=== PATIENT | female | born 2005 | race African-American/Black ===

== ENCOUNTER 2025-03-25 21:05 | Emergency (ER) | payer OTHER, SELFPAY ==
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
[2025-03-25 21:16] VITALS: BP 135/89; PULSE 97; RESP 14; TEMP 36.6; O2SAT 100
--- NOTE | 2025-03-25 22:08 | ECG_ITS ---
Test Date: 2025-03-25 23:10:13 Measurements Intervals [place] Rate: 93 P: 46 VT: 145 QRS: 49 QRSD: 89 T: 14 QT: 369 QTc: 461 Interpretive Statements SINUS RHYTHM NORMAL ELECTROCARDIOGRAM No previous ECG available for comparison Electronically Signed On 03-26-2025 07:34:59 DISPLAY CARD WRITER by Antonio Hankins M.D.
[2025-03-25 22:09] VITALS: BP 147/87; PULSE 95; RESP 26; O2SAT 100
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
[2025-03-25] MEDS: SODIUM CHLORIDE 0.9% IV 1,000 ML 999 ML IV CONT (22:44)
--- OUTSIDE RECORDS SUMMARY | 2025-03-25 23:06 | XMS_ITS | Clinical Summary ---
Author Organization [facility] Address [address] [place] [address] Care Team Providers Care Assembler Show Motor Name Role Phone Crescencio Vazquez MD Primary Care Provider [phone] Allergies No known active allergies Medications etonogestreL-eth inyl estradioL (EluRyng) 0.12-0.015 mg/24 hr vaginal ring Insert 1 each into the vagina every 28 (twenty-eig ht) days Active Active Problems No known active problems Immunizations Immunization Administration Dates Next Due DTaP 04/14/2005, 5,02/19/2004,12/24 DTaP / IPV 12/22/2008 HPV, Quadrivalent 11/17/2014 HPV9 03/18/2016,10/16/2015 Hep A, Pediatric 11/17/2014,11/15/2006, 6 Hep B, Adolescent or Pediatric 5,02/19/2004,2003,10/09 HiB 04/14/2005, 5,02/19/2004,12/24 IPV 05/06/2004,02/19/2004,2003 Influenza, Quadrivalent, Spl it, Preservative Free, Intramuscular 03/18/2016 Influenza, Split 05/06/2004 MMR 12/22/2008,10/28/2004 Meningococcal B, OMV (Bexsero) 09/01/2020,2019 Meningococcal Conjugate (Menveo) 11/17/2014 Meningococcal MCV4P (Menactra) 03/03/2020 Pneumococcal Conjugate 7-Valent 04/14/20,05/06/2004,02/19/2004,12/24 Tdap 11/28/2024,11/17/2014 Varicella 12/22/2008,10/28/2004 Social History Tobacco Use Types Packs/Day Years Used Date Smoking Tobacco: Never Smokeless Tobacco: Never Tobacco Cessation:Counseling Given: Not Answered AUDIT-C Answer Date Recorded Q1: How often do you have a drink containing alcohol? Never 11/28/2024 Q2: How many drinks containi ng alcohol do you have on a typical day when you are drinking? Patient does not drink Q3: How often do you have si x or more drinks on one occasion? Never 11/28/2024 PHQ-2 Answer Date Recorded PHQ-2 Total Score (If total score is 3 or more points, staff should administer the PHQ-9) 0 11/28/2024 Comments No Sex and Gender Information Value Date Recorded Sex Assigned at Not on file Legal Sex Female 1:06 PM LETTUCE TRIMMER Gender Identity Not on file Sexual Orientation Not on file Last Filed Vital Signs Vital Sign Reading Time Taken Comments Blood Pressure 118/82 11/28/2024 2:23 PM CDT Pulse 77 11/28/2024 2:23 PM CDT Temperature 37 C (98.6 F) 05/21/2022 7:24 PM LETTUCE TRIMMER Respiratory Rate 16 11/28/2024 2:23 PM CDT Oxygen Saturation 98% 11/28/2024 2:23 PM CDT Inhaled Oxygen Concentration - - Weight 99.5 kg (219 lb 6.4 oz) 11/28/2024 2:23 P M CDT Height 162.6 cm (5' 4.02) 11/28/2024 2:23 PM CD T Body Mass Index 37.64 11/28/2024 2:23 PM CDT Plan of Treatment Health Maintenance Due Date Last Done Comments Cervical Cancer Screening 2003 Covid-19 Vaccine (2 6 season) 2024 12/09/2021 Influenza Vaccine (#1) 2024 03/18/2016, 2004 Depression Screening 11/28/2025 11/28/2024 Regular Well Visit/Exam 18-64 11/28/2025 11/28/2024 DTaP/Tdap/Td Vaccine (8 - Td or Tdap) 11/28/2034 11/28/2024, 11/17/2014, 12/22/2008, Additional history exists Hepatitis B Screening Completed 05/06/2004 , 02/19/2004, 2003, Additional history exists Pneumococcal vaccine <65 Completed 005, 05/06/2004, 02/19/2004, Additional history exists Varicella Vaccines Completed 12/22/2008, 10/28/2004 HPV Vaccines Completed 03/18/2016, 09/29, 11/17/2014 Meningococcal Vaccine Completed 03/03/2020, 015 Meningococcal B Vaccine Completed 09/01/2020, 03/03 Hepatitis C Screening Completed 11/28/2024 Procedures Procedure Name Priority Date/Time Associated Diagnosis Comments HEPATITIS C ANTIBODY Routine 11/28/2024 3:07 PM CDT Routine screening for STI (sexually transmitted infection) from Last 3 Months or Most Recently Relevant to Health Maintenance Results * Hepatitis C antibody Blood (11/28/2024 3:07 PM CDT) Hep C Ab Nonreactive Nonreactive Comment: Interpretive Data Nonreactive: Antibodies to HCV not detected. Does NOT exclude the possibility of recent exposure to HCV. Equivocal: Equivocal for HCV antibodies. Supplemental molecular testing will be automatically performed to determine infection status in accordance with current CDC screening recommendations. Reactive: Positive for HCV antibodies. This may represent current or past HCV infection. Supplemental molecular testing will be automatically performed to determine current infection status in accordance with current CDC screening recommendations. Interpretive data was last revised on 2019. Testing performed by: [facility], [address] [place] [address], [place]., [address] Blood 11/28/2024 3:07 PM CDT 11/28/2024 7:22 PM CDT us Crescencio Vazquez MD LAB MICROBIOLOGY - GENERA L ORDERABLES Final Result DANNY MEJIA CARTHAGE) [address] [facility] [place] [address] from Last 3 Months or Most Recently Relevant to Health Maintenance Insurance [facility] Care Teams Assembler Show Motor Relationship Specialty Start Date End Date Crescencio Vazquez MD [address] [place] [address] PCP - General Family Medicine 02/15/23
--- OUTSIDE RECORDS SUMMARY | 2025-03-25 23:06 | XMS_ITS | Clinical Summary ---
Author Organization [facility] Address [address] [place] [address] Phone Care Team Providers Care Awning Frame Maker Name Role Phone Provider, None Primary Care Provider Unavailabl e Allergies No known active allergies Medications EluRyng 0.12-0.015 MG/24HR RING INSERT VAGINALLY FOR 3 WEEKS THEN REMOVE FOR 1 WEEK Active ondansetron (ZOFRAN-ODT) 4 MG TABLET DISPERSIBLE Take 1 Tablet by mouth every 8 hours as needed for Nausea - 1st line. 15 Tablet 4 Active prochlorperazine (COMPAZINE) 5 MG Tablet Take 1-2 Tablets by mouth every 6 hours as needed for Nausea - 1st line. 10 Tablet 4 Active Social History Tobacco Use Types Packs/Day Years Used Date Smoking Tobacco: Never Smokeless Tobacco: Never Tobacco Cessation:Counseling Given: Not Answered Alcohol Use Standard Drinks/Week Comments Never 0 (1 standard drink = 0.6 oz pur e alcohol) Comments Unknown Sex and Gender Information Value Date Recorded Sex Assigned at Not on file Legal Sex Female 3:11 PM CDT Gender Identity Not on file Sexual Orientation Not on file Last Filed Vital Signs Vital Sign Reading Time Taken Comments Blood Pressure 107/63 12/14/2023 3:39 AM CDT Pulse 87 12/14/2023 3:39 AM CDT Temperature 36.8 C (98.3 F) 12/14/2023 12:52 AM CDT Respiratory Rate 18 12/14/2023 3:39 AM CDT Oxygen Saturation 99% 12/14/2023 3:39 AM CDT Inhaled Oxygen Concentration - - Weight 104.3 kg (230 lb) 12/14/2023 12:52 AM CDT Height 162.6 cm (5' 4) 12/14/2023 12:52 AM CDT Body Mass Index 39.48 12/14/2023 12:52 AM CDT Plan of Treatment Health Maintenance Due Date Last Done Comments Hepatitis C Virus (HCV) Screening 2003 Pap Smear 10/09/2024 Influenza Immunization (#1) 2024 03/18/2016, 0 05/06/2004 SARS-COV-2 Immunization (2 - season) 2024 12/09/2021 Respiratory Syncytial Virus (RSV) Immunization (Adult) (1 - 1-dose 75+ series) 10/09/2078 Hepatitis B Immunization Completed 005, 02/19/2004, 2003, Additional history exists Pneumococcal Immunization Combined Aged Out 04/14/2005, 05/06/2004, 02/19/2004, Additional history exists No longer eligible based on patient's age to complete this topic Measles Mumps Rubella (MMR) Immunization Discontinued 12/22/2008, 10/28/2004 Polio (IPV) Immunization Discontinued 009, 12/22/2008, 05/06/2004, Additional history exists Varicella Immunization Completed 12/22/2008, 2004 DTaP/Tdap/Td Immunization Discontinued 2014, 12/22/2008, 12/22/2008, Additional history exists Hepatitis A Immunization Discontinued 015, 11/15/2006, 11/23/2005 TdaP Immunization Completed 11/17/2014 Human Papillomavirus (HPV) Immunization Completed 03/18/2016, 10/16/2015, 11/17/2014 Meningococcal Immunization (ACWY) Completed 03/03/2020, 11/17/2014 Meningococcal B Immunization Completed 09/01/2020, 03/03/2020 Rotavirus Immunization Aged Out No lo nger eligible based on patient's age [place] [address] [place] [id number] MEDICAID [employer] [facility] Care Teams Awning Frame Maker Relationship Specialty Start Date End Date Provider, None [place] PCP - General 04/07/23
--- OUTSIDE RECORDS SUMMARY | 2025-03-25 23:06 | XMS_ITS | Data Portability ---
Author Organization KEERTHI DESTINEEKrysten Mcallister Address [address] [place] [address] Assessment No assessment recorded. Plan of Treatment Reminders Order Date Submit Date Provider Last Modified By Organization Details Last Modified Time Details Appointments None recorded. Lab Mycobacter ium tuberculos is stimulated gamma interferon , qual, blood 2023 024 hung [facility], [address] [place], [place] [address]delon [address], [address], [place], [address], 4 09:40:32 urinalysis complete, reflex culture 2022 023 ELSIE [facility], [facility] br[facility]formerly [facility] [address], [address], [place], [address], 3 17:09:48 urinalysis complete, reflex culture 2022 023 MANH[place]AN [facility], [facility] brad[facility]formerly [facility] Rik, [facility] [address], [place], [address], 3 17:09:47 BMP, serum or plasma 2022 023 ELSIE [facility], [facility] brad[facility]formerly [facility] [address], [address], [place], [address], 3 17:09:46 TSH, serum or plasma 2022 023 ELSIE [facility], [facility] C[facility]ar [address], [address], [place], [address], 3 12:27:34 HbA1c (hemoglobi n A1c), blood 2022 023 ELSIE [facility], [address], [address], [place], [address], 3 17:09:49 lipid panel, serum 2019 020 ELSIE [facility], [address], [address], [place], [address], 0 11:12:42 HbA1c (hemoglobi n A1c), blood 2019 020 ELSIE [facility], [address], [address], [place], [address], 0 11:12:43 CMP, serum or plasma 2019 020 ELSIE [facility], [address], [address], [place], [address], 0 11:12:41 vitamin D, 25-hydroxy , total, serum 2019 020 ELSIE [facility], Lisa [address]on [address], [address], [place], [address], 0 11:12:44 TSH + free T4, serum 2019 020 ELSIE [facility], [address], [address], [place], [address], 0 11:12:40 HIV 1+2 AB + HIV 1 p24 Ag, qualitativ e immunoassa y, serum 2019 020 ELSIE [facility], [address], [address], [place], [address], 0 11:12:45 unlisted lab - chlamydiA/ GC amplificat ion-[id number] -U 2019 020 ELSIE [facility], [address], [address], [place], [address], 0 07:10:53 rapid strep group A, throat 2018 019 [email or web address] In-Office Order, Internal Use Only DO Not Attach Compendium DO Not Attach Compendium, Do Not Delete/merge, [id number] 9 17:22:30 Referral None recorded. Procedures None recorded. Surgeries None recorded. Imaging None recorded. Medication Orders ibuprofen 400 mg tablet 2022 023 [email or web address] Not available 4 09:34:35 Patient TargetsNo targets recorded. Patient Instructions Encounter Date Encounter Id Patient Instructions Last Modified By Organization Details Last Modified Time 03/03/2020 [id number] Learning About H ow to Make Healthy Changes in Your Child's Diet Not available 03/03/2020 16:46:07 Considering More Physical Activity for Your Child Not available 03/03/2020 16:46:07 Learning About H ow to Make Healthy Changes in Your Child's Diet Not available 03/03/2020 14:24:40 11/08/2022 [id number] A healthy lifestyle: care instructions [email or web address] Not available 11/08/2022 12:27:22 walking for exercise: care instructions Not available 11/08/2022 12:27:22 On the date of this encounter, I saw and examined the patient, personally verifying the artis and critical findings in the resident s note. I reviewed and agree with the resident/fellow s findings and plan. ~MD Maxime Good start for this patient. Learning Issues to consider: management and indications for breast reduction; ddx for low back pain in this patient [email or web address] Not available 11/08/2022 14:17:57 12/07/2023 [id number] A healthy lifestyle: care instructions [email or web address] Not available 12/07/2023 10:02:17 Attending Physician Attestation I did not personally see or examine the patient with the resident. I was physically present to provide indirect supervision through entire encounter. I have reviewed the documentation and agree with the history, physical findings, work-up, and medical decision making as recorded. Cristobal Boogie MD [email or web address] Not available 12/07/2023 09:56:33 Reason for Referral None Reported. Results Created Date Observation Date Name Description Value Unit Range Abnormal Flag Note LastModifiedBy Organization Detail LastModifiedTime 04/25/2004/25/2019 rapid strep group A, throa t Strep negati ve Not Available In-Office Order Internal Use Only DO Not Attach Compendium DO Not Attach Compendium, Do Not Delete/merge, [id number] 04/25/2019 17:22:23 03/03/2003/05/2020 chlam ydiA/ GC ampli ficat ion-1 [id number] -U chlamydia trachomatis, YOEL Negati ve negati ve Not Available [facility] ([facility]) [address] [place], [address], 03/05/2020 07:10:53 03/03/2003/05/2020 chlam ydiA/ GC ampli ficat ion-1 [id number] -U neisseria gonorrhoeae, YOEL Negati ve negati ve Not Available [facility] ([facility]) [address] [place], [address], 03/05/2020 07:10:53 03/18/2003/19/2020 TSH + free T4, serum TSH 2.730 uIU/m L 0.450- 4.500 Not Available [facility] ([facility]) [address] [place], [address], 03/19/2020 11:12:39 03/18/2003/19/2020 TSH + free T4, serum T4,free(dire ct) 1.02 NG/dL 0.93-1 .60 Not Available [facility] ([facility]) [address] [place], [address], 03/19/2020 11:12:39 03/18/2003/19/2020 CMP, serum or plasm a glucose 86 mg/dL 65-99 Not Available [facility] ([facility]) [address] [place], [address], 03/19/2020 11:12:40 03/18/2003/19/2020 CMP, serum or plasm a BUN 12 mg/dL 5-18 Not Available [facility] ([facility]) [address] [place], [address], 03/19/2020 11:12:40 03/18/2003/19/2020 CMP, serum or plasm a creatinine 0.89 mg/dL 0.57-1 .00 Not Available [facility] ([facility]) [address] [place], [address], 03/19/2020 11:12:40 03/18/2003/19/2020 CMP, serum or plasm a BUN/creatini ne ratio 13 10-22 Not Available [facility] ([facility]) [address] [place], [address], 03/19/2020 11:12:40 03/18/2003/19/2020 CMP, serum or plasm a sodium 141 mmol/ L 134-14 4 Not Available [facility] ([facility]) [address] [place], [address], 03/19/2020 11:12:40 03/18/2003/19/2020 CMP, serum or plasm a potassium 3.9 mmol/ L 3.5-5. 2 Not Available [facility] ([facility]) [address] [place], [address], 03/19/2020 11:12:40 03/18/2003/19/2020 CMP, serum or plasm a chloride 104 mmol/ L 96-106 Not Available [facility] ([facility]) [address] [place], [address], 03/19/2020 11:12:40 03/18/20 20 03/19/2020 CMP, serum or plasm a carbon dioxide, total 22 mmol/ L 20- Not Available [facility] ([facility]) [address] [place], [address], 03/19/2020 11:12:40 03/18/20 20 03/19/2020 CMP, serum or plasm a calcium 9.8 mg/dL 8.9-10 .4 Not Available [facility] ([facility]) [address] [place], [address], 03/19/2020 11:12:40 03/18/2003/19/2020 CMP, serum or plasm a protein, total 7.8 g/dL 6.0-8. 5 Not Available [facility] ([facility]) [address] [place], [address], 03/19/2020 11:12:40 03/18/2003/19/2020 CMP, serum or plasm a albumin 4.4 g/dL 3.9-5. 0 Not Available [facility] ([facility]) [address] [place], [address], 03/19/2020 11:12:40 03/18/20 20 03/19/2020 CMP, serum or plasm a globulin, total 3.4 g/dL 1.5-4. 5 Not Available [facility] ([facility]) [address] [place], [address], 03/19/2020 11:12:40 03/18/2003/19/2020 CMP, serum or plasm a A/G ratio 1.3 1.2-2. 2 Not Available [facility] ([facility]) [address] [place], [address], 03/19/2020 11:12:40 03/18/20 20 03/19/2020 CMP, serum or plasm a bilirubin, total 0.3 mg/dL 0.0-1. 2 Not Available [facility] ([facility]) [address] [facility], [place], [address], 03/19/2020 11:12:40 03/18/2003/19/2020 CMP, serum or plasm a alkaline phosphatase 95 IU/L 49-108 Not Available [facility] ([facility]) [address] [facility], [place], [address], 03/19/2020 11:12:40 03/18/2003/19/2020 CMP, serum or plasm a AST (SGOT) 18 IU/L 0-40 Not Available [facility] ([facility]) [address] [facility], [place], [address], 03/19/2020 11:12:40 03/18/2003/19/2020 CMP, serum or plasm a ALT (SGPT) 13 IU/L 0-24 Not Available [facility] ([facility]) [address] [facility], [place], [address], 03/19/2020 11:12:40 03/18/2003/19/2020 lipid panel , serum cholesterol, total 192 mg/dL 100-16 9 above high normal Not Available [facility] ([facility]) [address] [facility], [place], [address], 03/19/2020 11:12:42 03/18/2003/19/2020 lipid panel , serum triglyceride s 67 mg/dL 0-89 Not Available [facility] ([facility]) [address] [facility], [place], [address], 03/19/2020 11:12:42 03/18/20 20 03/19/2020 lipid panel , serum HDL cholesterol 64 mg/dL >39 Not Available [facility] ([facility]) [address] [facility], [place], [address], 03/19/2020 11:12:42 03/18/20 20 03/19/2020 lipid panel , serum VLDL cholesterol brayden 12 mg/dL 5-40 Not Available [facility] ([facility]) [address] [facility], [place], [address], 03/19/2020 11:12:42 03/18/20 20 03/19/2020 lipid panel , serum LDL chol calc ([facility]) 116 mg/dL 0-109 above high normal Not Available [facility] (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) [address] [facility], [place], [address], 03/19/2020 11:12:42 03/18/2003/19/2020 lipid panel , serum LDL/HDL ratio 1.8 ratio 0.0-3. 2 LDL/H DL Ratio Men Women 1/2 Avg.R isk 1.0 1.5 Avg.R isk 3.6 3.2 2X Avg.R isk 6.2 5.0 3X Avg.R isk 8.0 6.1 Not Available [facility] ([facility]) [address] [facility], [place], [address], 03/19/2020 11:12:42 03/18/20 20 03/19/2020 HbA1c (hemo globi n A1c), blood hemoglobin A1C 5.4 % 4.8-5. 6 Predi abete s: 5.7 - 6.4 Diabe ry: >6.4 Glyce gris contr ol for adult s with diabe ry: <7.0 Not Available [facility] ([facility]) [address] [facility], [place], [address], 03/19/2020 11:12:43 03/18/2003/19/2020 vitam in D, 25-hy droxy , total , serum vitamin D, 25-hydroxy 15.0 NG/mL 30.0-1 00.0 below low normal Vitam in D defic iency has been defin ed by the Insti tute of Medic ine and an Endoc rine Socie ty pract ice guide line as a level of serum 25-OH vitam in D less than 20 ng/mL (1,2) . The Endoc rine Socie ty went on to furth er defin e vitam in D insuf ficie ncy as a level betwe en 21 and 29 ng/mL (2). 1. IOM (Inst itute of Medic ine). 2010. Dieta ry refer ence lesvia es for calci um and D. Maude kaiser [place]: [facility] . 2. Javier ribeiro MF, Cassi hernandez NC, Parminder off-F errar i ARZATE, et al. Evalu ation , treat ment, and preve ntion of vitam in D defic iency : an Endoc rine Socie ty clini brayden pract ice guide line. JCEM. 2010; 96(7) :1911 -30. Not Available [facility] ([facility]) [address] [place], [address], 03/19/2020 11:12:44 03/18/20 20 03/19/2020 HIV 1+2 AB + HIV 1 p24 Ag, quali tativ e immun oassa y, serum HIV screen 4TH generation wrfx Non Reacti ve non reacti ve Not Available [facility] ([facility]) [address] [place], [address], 03/19/2020 11:12:45 04/21/2004/22/2020 lipid panel , serum cholesterol, total 218 mg/dL 100-16 9 above high normal Not Available [facility] ([facility]) [address] [place], [address], 04/22/2020 07:11:19 04/21/20 20 04/22/2020 lipid panel , serum triglyceride s 78 mg/dL 0-89 Not Available [facility] ([facility]) [address] [place], [address], 04/22/2020 07:11:19 04/21/20 20 04/22/2020 lipid panel , serum HDL cholesterol 73 mg/dL >39 Not Available [facility] ([facility]) [address] [place], [address], 04/22/2020 07:11:19 04/21/20 20 04/22/2020 lipid panel , serum VLDL cholesterol brayden 14 mg/dL 5-40 Not Available [facility] ([facility]) [address] [place], [address], 04/22/2020 07:11:19 04/21/20 20 04/22/2020 lipid panel , serum LDL chol calc ([facility]) 131 mg/dL 0-109 above high normal Not Available [facility] (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) [address] [place], [address], 04/22/2020 07:11:19 04/21/20 20 04/22/2020 lipid panel , serum T. chol/HDL ratio 3.0 ratio 0.0-4. 4 T. Chol/ HDL Ratio Men Women 1/2 Avg.R isk 3.4 3.3 Avg.R isk 5.0 4.4 2X Avg.R isk 9.6 7.1 3X Avg.R isk 23.4 11.0 Not Available [facility] ([facility]) [address] [place], [address], 04/22/2020 07:11:19 04/21/20 20 04/22/2020 vitam in D, 25-hy droxy , total , serum vitamin D, 25-hydroxy 28.6 NG/mL 30.0-1 00.0 below low normal Vitam in D defic iency has been defin ed by the Insti tute of Medic ine and an Endoc rine Socie ty pract ice guide line as a level of serum 25-OH vitam in D less than 20 ng/mL (1,2) . The Endoc rine Socie ty went on to furth er defin e vitam in D insuf ficie ncy as a level betwe en 21 and 29 ng/mL (2). 1. IOM (Inst itute of Medic ine). 2010. Dieta ry refer ence intak es for calci um and D. Maude kaiser [place]: [facility] Press . 2. Javier ribeiro MF, Cassi hernandez [place], Parminder off-F errangelita i ARZATE, et al. Evalu ation , treat ment, and preve ntion of vitam in D defic iency : an Endoc rine Socie ty clini brayden pract ice guide line. JCEM. 2010; 96(7) :1911 -30. Not Available [facility] ([facility]) [address] [facility], [place], [address], 04/22/2020 07:11:20 11/09/19 23 11/08/2022 BASIC METAB OLIC PANEL (8) interpretati on: Commen t GFR estim ate at the follo wing level for >or=3 month s is class ified as follo ws: GFR WITH KIDNE Y DAMAG E WITHO UT KIDNE Y DAMAG E >or=9 0 Stage 1 Bhavana l 60-89 Stage 2 Decr eased GFR 30-59 Stage 3 Stage 3 15-29 Stage 4 Stage 4 <15 (or dialy sis) Stage 5 Stage 5 Estim ated GFR will over estim ate true GFR if serum creat inine is risin g as in acute renal failu re and will under estim ate true GFR if serum creat inine is decli josephine as in resol ving acute renal failu re. Addit ional infor candelaria lemos may be found at www.k doqi. org. Not Available [facility] [address] [facility], [place], [address], 11/10/2022 17:09:46 11/09/19 23 11/09/2022 BASIC METAB OLIC PANEL (8) glucose 93 mg/dL 70-99 Not Available [facility] [address] [place], [address], 11/10/2022 17:09:46 11/09/19 23 11/09/2022 BASIC METAB OLIC PANEL (8) BUN 9 mg/dL 6-20 Not Available [facility] [address] [place], [address], 11/10/2022 17:09:46 11/09/19 23 11/09/2022 BASIC METAB OLIC PANEL (8) creatinine 0.86 mg/dL 0.57-1 .00 Not Available [facility] [address] [place], [address], 11/10/2022 17:09:46 11/09/19 23 11/09/2022 BASIC METAB OLIC PANEL (8) eGFR 100 mL/mi n/1.7 3 >59 Not Available [facility] [address] [place], [address], 11/10/2022 17:09:46 11/09/19 23 11/09/2022 BASIC METAB OLIC PANEL (8) BUN/creatini ne ratio 10 9-23 Not Available [facility] [address] [place], [address], 11/10/2022 17:09:46 11/09/19 23 11/09/2022 BASIC METAB OLIC PANEL (8) sodium 141 mmol/ L 134-14 4 Not Available [facility] [address] [place], [address], 11/10/2022 17:09:46 11/09/19 23 11/09/2022 BASIC METAB OLIC PANEL (8) potassium 3.8 mmol/ L 3.5-5. 2 Not Available [facility] [address] [place], [address], 11/10/2022 17:09:46 11/09/19 23 11/09/2022 BASIC METAB OLIC PANEL (8) chloride 101 mmol/ L 96-106 Not Available [facility] [address] [place], [address], 11/10/2022 17:09:46 11/09/19 23 11/09/2022 BASIC METAB OLIC PANEL (8) carbon dioxide, total 24 mmol/ L 20-29 Not Available [facility] [address] [place], [address], 11/10/2022 17:09:46 11/09/19 23 11/09/2022 BASIC METAB OLIC PANEL (8) calcium 10.1 mg/dL 8.7-10 .2 Not Available [facility] [address] [place], [address], 11/10/2022 17:09:46 11/09/19 23 11/09/2022 UA WITH CULTU RE REFLE X urinalysis reflex TNP Dupli yamilka proce dure order ed. Not Available [facility] [address] [place], [address], 11/10/2022 17:09:47 11/09/19 23 11/09/2022 UA/M W/RFL X CULTU RE, COMP specific gravity 1.026 1.005- 1.030 Not Available [facility] [address] [place], [address], 11/10/2022 17:09:48 11/09/19 23 11/09/2022 UA/M W/RFL X CULTU RE, COMP pH 6.0 5.0-7. 5 Not Available [facility] [address] [place], [address], 11/10/2022 17:09:48 11/09/19 23 11/09/2022 UA/M W/RFL X CULTU RE, COMP urine-color Yellow yellow Not Available [facility] [address] [place], [address], 11/10/2022 17:09:48 11/09/19 23 11/09/2022 UA/M W/RFL X CULTU RE, COMP appearance Clear clear Not Available [facility] [address] [place], [address], 11/10/2022 17:09:48 11/09/19 23 11/09/2022 UA/M W/RFL X CULTU RE, COMP WBC esterase Negati ve negati ve Not Available [facility] [address] [place], [address], 11/10/2022 17:09:48 11/09/19 23 11/09/2022 UA/M W/RFL X CULTU RE, COMP protein Trace negati ve/tra ce Not Available [facility] [address] [place], [address], 11/10/2022 17:09:48 11/09/19 23 11/09/2022 UA/M W/RFL X CULTU RE, COMP glucose Negati ve negati ve Not Available [facility] [address] [place], [address], 11/10/2022 17:09:48 11/09/19 23 11/09/2022 UA/M W/RFL X CULTU RE, COMP ketones Negati ve negati ve Not Available [facility] [address] [place], [address], 11/10/2022 17:09:48 11/09/19 23 11/09/2022 UA/M W/RFL X CULTU RE, COMP occult blood Negati ve negati ve Not Available [facility] [address] [place], [address], 11/10/2022 17:09:48 11/09/19 23 11/09/2022 UA/M W/RFL X CULTU RE, COMP bilirubin Negati ve negati ve Not Available [facility] [address] [place], [address], 11/10/2022 17:09:48 11/09/19 23 11/09/2022 UA/M W/RFL X CULTU RE, COMP urobilinogen ,semi-qn 0.2 mg/dL 0.2-1. 0 Not Available [facility] [address] [place], [address], 11/10/2022 17:09:48 11/09/19 23 11/09/2022 UA/M W/RFL X CULTU RE, COMP nitrite, urine Negati ve negati ve Not Available [facility] [address] [place], [address], 11/10/2022 17:09:48 11/09/19 23 11/09/2022 UA/M W/RFL X CULTU RE, COMP microscopic examination Commen t Micro scopi c follo ws if indic ated. Not Available [facility] [address] [place], [address], 11/10/2022 17:09:48 11/09/19 23 11/09/2022 UA/M W/RFL X CULTU RE, COMP microscopic examination See below: Micro scopi c was indic ated and was perfo rmed. Not Available [facility] [address] [place], [address], 11/10/2022 17:09:48 11/09/19 23 11/09/2022 UA/M W/RFL X CULTU RE, COMP urinalysis reflex Commen t This speci men will not refle x to a Urine Cultu re. Not Available [facility] [address] [place], [address], 11/10/2022 17:09:48 11/09/19 23 11/10/2022 A1C W/GLY COMAR K(R) REFLE X Hb A1C diabetic assessment 5.6 %Hb Note: A refle x test was order ed on this speci men. If A1c resul ts are betwe en a value of 6.0 to 8.0 (incl uding 6.0 and 8.0), Glyco Bairon testi ng is perfo rmed. Glyco Bairon refle cts post prand ial gluco se spike s from the past 2 weeks , where as A1c refle cts avera ge glyce gris contr ol over the past 3 month s. Refer ence Range : Bhavana l: <5.7 Incre ased risk for diabe ry: 5.7 - 6.4 Ongoi ng Hyper glyce edgardo: >6.4 Glyce gris contr ol for adult s with diabe ry: <7.0 (ADA) Not Available [facility] [address] [place], [address], 11/10/2022 17:09:49 11/09/19 23 11/10/2022 A1C W/GLY COMAR K(R) REFLE X estimated average glucose 114 mg/dL Not Available [facility] [address] [facility], [place], [address], 11/10/2022 17:09:49 11/09/19 23 11/10/2022 A1C W/GLY COMAR K(R) REFLE X glycomark(R) (1,5 Ag) - ug/mL Testi ng Not Indic ated Glyco Bairon( TM) is inten ded for use with manag ing glyce gris contr ol in diabe tic patie nts. A low resul t corre spond s to high gluco se peaks . 1, 5-AG blood level s can be affec jennifer by clini brayden condi tions or medic ation s. Pleas e refer to the direc tory of servi waqar or labco rp websi te test menu for detai led list of limit ation s. Not Available [facility] [address] [place], [address], 11/10/2022 17:09:49 07/11/20 23 11/09/2022 MICRO SCOPI C EXAMI NATIO N WBC None seen /hpf 0-5 Not Available [facility] [address] [place], [address], 11/10/2022 17:09:47 11/09/19 23 11/09/2022 MICRO SCOPI C EXAMI NATIO N RBC 0-2 /hpf 0-2 Not Available [facility] [address] [place], [address], 11/10/2022 17:09:47 11/09/19 23 11/09/2022 MICRO SCOPI C EXAMI NATIO N epithelial cells (non renal) 0-10 /hpf 0-10 Not Available [facility] [address] [place], [address], 11/10/2022 17:09:47 11/09/19 23 11/09/2022 MICRO SCOPI C EXAMI NATIO N casts None seen /lpf nonese en Not Available [facility] [address] [place], [address], 11/10/2022 17:09:47 11/09/19 23 11/09/2022 MICRO SCOPI C EXAMI NATIO N bacteria Few nonese en/few Not Available [facility] [address] [place], [address], 11/10/2022 17:09:47 11/09/19 23 11/09/2022 TSH TSH 2.630 uIU/m L 0.450- 4.500 Not Available [facility] ([facility]) [address] [facility], [place], [address], 11/09/2022 08:24:18 Result Notes None recorded. Problems Name Problem SNOMED Code Status Onset Date Resolution Date Notes Provider Name and Address Organization Details Recorded Time Increased body mass index 13204753 Active DAVID VAZQUEZ MD Attn: Accounting ,[address] [place], [address] , [facility] [place] [place] 3 11:44:29 Pyuria 7454046 Active Not Available [facility] 3 01:20:25 Verruca vulgaris 45026134 Active Not Available [facility] 3 01:20:25 Idiopathic scoliosis 967324828 Active DAVID VAZQUEZ MD Attn: Accounting ,[address] [place], [address] , [facility], [place] 3 11:44:16 Acute bilateral otitis media 909616258 Active Not Available [facility] 3 01:20:25 Upper respiratory infection 00728684 Active Not Available [facility] 3 01:20:25 Low back pain 814752907 Active 2022 DAVID VAZQUEZ MD Attn: Accounting ,[address] [place], [address] , [facility] [place], [place] 3 11:47:05 Problem Notes Documentation Provider Name and Address Organization Details Recorded Time Gynecology Note : This document (1 of 1) was received from [email or web address] [employer] on 10/08/2023 through Direct Message along with the following message body content: Patient Name: FRANCHESKA BRANCH. Patient : 2005. Patient . Roma Decker [facility] 10/09/2023 11:31:07 Procedures Surgical History Date Name Laterality Status Provider Name and Address Organization Details Recorded Time 6 Cryosurgery Warts/Skin Tags completed Jalyn cantrell MD Attn: Accounting,[address] [place], [address], [facility] [place], [place] 10/16/2015 16:46:42 Imaging Results None recorded. Procedure Notes None recorded. Medical Equipment None Reported. Allergies No known drug allergies Medications Name Sig Start Date Stop Date Status Note LastModified by Organization Details LastModified Time vitamin d3 5000iu capsule TAKE 1 CAPSULE BY MOUTH EVERY DAY DIRECTED 11/08 completed Not Available Not Available Not Available azithromyci n 250 mg tablet take 2 tablets PO on day 1, then 1 tablet once a day from days 2-5 09/27 completed Not Available Not Available Not Available fluconazole 150 mg tablet DIRECTED - ONETABLET BY MOUTH X 1 DOSE/MAY REPEAT. IN 3 DAYS IF NEEDED 12/06 completed Not Available Not Available Not Available naproxen 250 mg tablet Take 1 tablet every 12 hours by oral route as needed. 09/13 completed Not Available Not Available Not Available ibuprofen 400 mg tablet Take 1 tablet every 4 hours by oral route after meals. 12/06 completed Not Available Not Available Not Available amoxicillin 400 mg/5 mL oral suspension take 12.5 ml PO 2x daily for 10 days 09/13 completed Not Available Not Available Not Available ibuprofen 600 mg tablet 03/03 completed Not Available Not Available Not Available cholecalcif jeannie (vitamin D3) 125 mcg (5,000 unit) capsule Take 1 capsule every day by oral route as directed for 90 days. 11/08 completed Not Available Not Available Not Available amoxicillin 875 mg-potassiu m clavulanate 125 mg tablet PLEASE SEE ATTACHED FOR DETAILED DIRECTION S 12/06 completed Not Available Not Available Not Available Lantus Solostar U-100 Insulin 100 unit/mL (3 mL) subcutaneou s pen Inject 8 units every day by subcutane ous route. 11/08 completed Not Available Not Available Not Available Altavera (28) 0.15 mg-0.03 mg tablet TAKE 1 TABLET BY MOUTH EVERY DAY 11/08 completed Not Available Not Available Not Available EluRyng 0.12 mg-0.015 mg/24 hr vaginal ring INSERT VAGINALLY FOR 3 WEEKS THEN REMOVE FOR 1 WEEK active Not Available Not Available No t Available Vitals Date Recorded Body height Body mass index (BMI) [Percentile] Per age and sex Body mass index (BMI) Body weight Heart rate Oxygen saturation Body temperature Respiratory rate Systolic And Diastolic Provider Name and Address Organization Details Last Updated DateTime 3 162.56 cm 99 % 41.5 kg/m2 777964. 56 g 70 /min 98 % 98.1 [degF] 18 /min 110/70 mm[Hg] Nancy Banks MA [facility] 3 10:37:32 Date Recorded Body height Body mass index (BMI) [Percentile] Per age and sex Body mass index (BMI) Body weight Body temperature Respiratory rate Heart rate Systolic And Diastolic Provider Name and Address Organization Details Last Updated DateTime 4 162.56 cm 98 % 39.5 kg/m2 286207. 6 g 97.5 [degF] 16 /min 88 /min 111/74 mm[Hg] Christi Silver MA [facility] 4 09:36:22 Date Recorded Body height Body mass index (BMI) [Percentile] Per age and sex Body mass index (BMI) Body weight Heart rate Respiratory rate Body temperature Systolic And Diastolic Provider Name and Address Organization Details Last Updated DateTime 0 162.56 cm 99 % 36.5 kg/m2 43376.7 4 g 88 /min 24 /min 98.5 [degF] 122/70 mm[Hg] Lyudmila Lee MA [facility] 0 14:14:05 Date Recorded Body height Body mass index (BMI) [Percentile] Per age and sex Body mass index (BMI) Body weight Heart rate Respiratory rate Body temperature Systolic And Diastolic Provider Name and Address Organization Details Last Updated DateTime 9 162.56 cm 98 % 33.3 kg/m2 43560.9 2 g 112 /min 24 /min 99.8 [degF] 112/68 mm[Hg] Arlen Bee MA [facility] 9 15:48:01 Social History Question Answer Notes LastModified by Organizat ion Details LastModified Time Tobacco Smoking Status Never Smoker Carola Scott MA null, [facility] 10/16/2015 15:42:19 Animal Exposure? Yes Dog And Cat Information not available 11/08/2022 Do You Wear A Helmet When Biking? No Information not available 10/16/2015 What Is Your Level Of Caffeine Consumption? Moderate Information not available 11/08/2022 What Type Of Business Continuity Planner Do You Use? None Information not available 10/16/2015 What Type Of Diet Are You Following? REGULAR Information not available 10/16/2015 Have There Been Any Changes To Your Family Or Social Situation? No Information not available 10/16/2015 Are There Any Guns Present In Your Home? No Information not available 10/16/2015 What Is Your Home Situation? Both Parents Information not available 10/16/2015 Do You Use Insect Repellent Routinely? No Information not available 10/16/2015 Car Seat Type Or Seat Belt? Seat Belt Information not available 10/16/2015 Parent Involvement? Both Parents Involved Information not available 10/16/2015 Riding In Car Front Seat? Yes Information not available 10/16/2015 What Was The Date Of Your Most Recent Tobacco Screening? 12/07/2023 [email or web address] Information not available 12/07/2023 What Is Your Parents' Marital Status? Information not available 10/16/2015 Pool Exposure No Informat ion not available 10/16/2015 What Is Your Relationship Status? Single [email or web address] Information not available 11/08/2022 What Is The Name Of Your School? [employer] Information not available 10/16/2015 Are You Sexually Active? No [email or web address] Information not available 11/08/2022 Do You Have Any Siblings? 2 Brothers 1 Sister Information not available 10/16/2015 Do You Have Smoke And Carbon Monoxide Detectors In Your Home? Yes Information not available 10/16/2015 Are You Passively Exposed To Smoke? Yes Information not available 10/16/2015 How Much Tobacco Do You Smoke? No Information not available 09/13/2017 Do You Use Sunscreen Routinely? No Information not available 10/16/2015 Has Tobacco Cessation Counseling Been Provided? No Information not available 11/08/2022 Year In School 8 Informat ion not available 09/13/2017 Sex: Female Functional Status Question Answer Note LastModified by Organizat ion Details LastModified Time Do you use any illicit or recreational drugs? No Information not available 11/08/2022 Do you or have you ever used any other forms of tobacco or nicotine? No Information not available 11/08/2022 What is your level of alcohol consumption? None Information not available 11/08/2022 What is your exercise level? Occasional Information not available 10/16/2015 Mental Status Question Answer Note LastModified by Organization D etails LastModified Time Do you feel stressed (tense, restless, nervous, or anxious, or unable to sleep at night)? [id number] [email or web address] Information not available 11/08/2022 Are you or have you been involved with bullying? No Information not available 10/16/2015 Family History Relationship Description Onset Age of this Age Resolved Age Notes LastModified by Organization Details LastModified Time Father Hypertensive disorder 30 [email or web address] Not available 01/07 12:28:39 Medical History Condition Response Blood Diseases N Ear or Hearing Problems N Thyroid Problems N Depression N Developmental or Behavioral Disorders N Skin Problems N Premature N Anemia N Constipation N Diabetes N Anxiety Disorder N Muscle, Joint, or Bone Problems N Bedwetting N Vision or Eye Problems N Seizures/Epilepsy N Heart Problems/Murmur N Head Injury/Concussion N Cancer N Allergies N Asthma N ADHD N Bladder or Kidney Problems N Headaches N Chicken Pox N Autism Spectrum Disorder (ASD) N Gynecological HistoryNo gynecological history recorded. Obstetrics History GPAL:G 0 P 0 0 0 0 Immunizations Vaccine Type Date Status Note Provider Nam e and Address Organization Details Recorded Time HPV9 6 completed Not Available [facility] 05/18/2019 02:32:04 meningococcal B, OMV 1 completed DAVID VAZQUEZ MD Attn: [address] [place], [address], [place] [facility] 11/08/2022 12:57:44 COVID-19, mRNA, LNP-S, PF, 30 mcg/0.3 mL dose, ad-sucrose 2 completed DAVID VAZQUEZ MD Attn: [address] [facility], [place], [place], [address] [place] [address], [facility] 11/08/2022 12:57:44 DTaP-IPV 9 completed DAVID VAZQUEZ MD Attn: Accounting[address] [facility], [place], [place], [address] [place] [address], [facility] 11/08/2022 12:57:44 influenza, split (incl. purified surface antigen) 5 completed DAVID VAZQUEZ MD Attn: Accounting[address] [facility], [place], [place], [address] [place] [address], [facility] 11/08/2022 12:57:44 HPV, quadrivalent 5 completed DAVID VAZQUEZ MD Attn: Accounting[address] [facility], [place], [place], [address] [place] [address], [facility] 11/08/2022 12:57:44 Meningococcal MCV4O 5 completed DAVID VAZQUEZ MD Attn: Accounting[address] [facility], [place], [place], [address] [place] [address], [facility] 11/08/2022 12:57:44 HPV9 6 completed Not Available [facility] 05/18/2019 02:32:38 Influenza, split virus, quadrivalent, PF 6 completed Not Available [facility] 05/18/2019 02:32:38 Hep B, adolescent or pediatric 4 completed Not Available [facility] 05/10/2022 01:20:26 IPV 4 completed Not Available [facility] 05/10/2022 01:20:26 Hib, unspecified formulation 5 completed Not Available [facility] 05/10/2022 01:20:26 varicella 9 completed DAVID VAZQUEZ MD Attn: Accounting[address] [facility], [place], [place], [address] [place] [address], [facility] 11/08/2022 12:57:44 DTaP 5 completed Not Available [facility] 05/10/2022 01:20:26 pneumococcal conjugate PCV 7 4 completed Not Available [facility] 05/10/2022 01:20:26 IPV 4 completed Not Available [facility] 05/10/2022 01:20:26 DTaP 4 completed Not Available [facility] 05/10/2022 01:20:26 pneumococcal conjugate PCV 7 4 completed Not Available [facility] 05/10/2022 01:20:26 DTaP 4 completed Not Available [facility] 05/10/2022 01:20:26 IPV 5 completed Not Available [facility] 05/10/2022 01:20:26 MMR 9 completed DAVID VAZQUEZ MD Attn: Accounting[address] [place], [address], [facility] 11/08/2022 12:57:44 Hep B, adolescent or pediatric 5 completed Not Available [facility] 05/10/2022 01:20:26 varicella 5 completed Not Available [facility] 05/10/2022 01:20:26 Hib, unspecified formulation 4 completed Not Available [facility] 05/10/2022 01:20:26 DTaP 5 completed Not Available [facility] 05/10/2022 01:20:25 Hep A, ped/adol, 2 dose 6 completed Not Available [facility] 05/10/2022 01:20:26 Hep B, adolescent or pediatric 4 completed Not Available [facility] 05/10/2022 01:20:26 Influenza, split virus, trivalent, preservative 5 completed DAVID VAZQUEZ MD Attn: Accounting[address] [place], [address], [facility] 11/08/2022 12:57:44 MMR 5 completed Not Available [facility] 05/10/2022 01:20:26 pneumococcal conjugate PCV 7 5 completed Not Available [facility] 05/10/2022 01:20:26 Hib, unspecified formulation 5 completed Not Available [facility] 05/10/2022 01:20:26 DTaP 9 completed DAVID VAZQUEZ MD Attn: Accounting[address] [facility], [place], [place], [address] [place] [address], [facility] 11/08/2022 12:57:44 IPV 9 completed DAVID VAZQUEZ MD Attn: Accounting[address] [facility], [place], [place], [address] [place] [address], [facility] 11/08/2022 12:57:44 Hep B, adolescent or pediatric 4 completed Not Available [facility] 05/10/2022 01:20:26 pneumococcal conjugate PCV 7 5 completed Not Available [facility] 05/10/2022 01:20:26 Hib, unspecified formulation 4 completed Not Available [facility] 05/10/2022 01:20:26 Hep A, ped/adol, 2 dose 7 completed Not Available [facility] 05/10/2022 01:20:26 HPV9 5 completed Not Available [facility] 05/18/2019 02:39:22 Hep A, ped/adol, 2 dose 5 completed Not Available [facility] 05/18/2019 02:40:25 Tdap 5 completed Not Available [facility] 05/18/2019 02:45:27 meningococcal B, OMV 0 completed Jalyn Pemberton MD Attn: [address]ing[address] [facility], [place], [place], [address] [place] [address], [facility] 03/03/2020 16:40:44 meningococcal MCV4P 0 completed Jalyn Pemberton MD Attn: Accounting[address] [facility], [place], [place], [address] [place] [address], [facility] 03/03/2020 16:40:44 Past Encounters Encounter ID Performer Location Encounter Start Date Encounter Closed Date Diagnosis/Indication Diagnosis SNOMED-CT Code Diagnosis ICD10 Code Diagnosis IMO Codes Diagnosis Note [id number] MD Yanna Oro (Peds) [address] [place] [address] 11/17/2014 14:12:09 11/17/2014 15:23:49 Well child visit 827015662 anticipato ry guidance, dietary guidance Increased body mass index 77785506 Pyuria 5472246 [id number] MD Yanna Oro (Peds) [address] [place] [address] 10/16/2015 15:26:11 10/16/2015 17:17:32 Well child visit 095220974 Z00.129 anticipato ry guidance, dietary guidance Increased body mass index 79765744 Z68.54 Verruca vulgaris 0049934 3 B07.9 L knee -- scraping done with surgical blade, applicatio n of cryotherap y done x 3 cycles [id number] MD [facility] [address] [facility] [place] [address] 01/08/2016 12:12:04 01/08/2016 13:42:16 Idiopathic scoliosis 422371067 M41.119 M54.9 Dad was advised that she may need PT to help with strengthen ing her back muscles. Will wait for results of the x-ray Acute bila teral otitis media 204927039 H66.93 Upper resp iratory infection 96279836 J06.9 rapid strep was negative. Coughing most likely secondary to drainage Increase PO fluids. Use a humidifier [id number] MD [facility]Peds[facility] [address] [facility] [place] [address] 03/18/2016 15:41:31 03/21/2016 12:27:51 Active or passive immunization 758267117 Z23 [id number] MD Yanna Oro [facility]Peds[facility] [address] [facility] [place] [address] 07/21/2016 16:21:34 07/21/2016 17:23:12 Acute right otitis media 991797128 H66.91 Upper resp iratory infection 23998771 J06.9 strep was negative. increase PO fluids [id number] MD Yanna Oro 14 [facility] [address] [place] [address] 09/13/2017 15:57:16 09/14/2017 10:07:46 Has a sore throat 535945903 J02.9 Tylenol/Mo reji as needed. Possibly from coughing Acute bronchitis 0029865 2 J20.9 [id number] MD Yanna Oro [facility] [address] [facility] [place] [address] 09/27/2017 13:53:45 09/27/2017 16:11:41 Well child 980724381 Z00.129 Overweight in childhood 832731853 Z68.54 Adolescent idiopathic scoliosis 919719825 M41.352 [id number] MD Ynana Oro [address] [place] [address] [place] [address] 04/25/2019 15:32:51 04/26/2019 12:26:54 Temporomandibular joint disorder 51139202 M26.609 -Avoid gum, chewing on food -Take ibuprofen 3 times per day -If symptoms persist, discussed calling dentist for exam . [id number] MD Yanna Oro 14 P[facility] [address] [place] [address] 03/03/2020 13:53:36 03/04/2020 15:14:06 Well child visit 089406364 Z00.129 anticipato ry guidance, dietary guidance Overweight in childhood 464308422 Z68.54 Diet education 28668725 Z71.3 Exercises education, guidance, and counseling 785030613 Z71.82 [id number] MD Yanna Oro 14 P[facility]S [address] [place] [address] 09/01/2020 11:12:06 09/02/2020 14:16:00 Not up to date with immunizations 654930808 Z28.3 [id number] MD Yanna Jose [address] IM [address] [facility] [place] [address] 11/08/2022 10:03:27 11/09/2022 13:06:33 Morbid obesity 365384928 E66.01 BMI of 41.5. Last lipid panel was in 2019 displayed moderately elevated cholestrol and LDL Low back pain 376787668 M54.50 Urine culture to rule out UTI for lower back painIbupro fen as needed for the low back pain. 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 History an d physical examination, pre-employment 887058791 Z02.1 18 y/o F with no concerns/s ignificant PMHx presents for pre employment physical.N o concerns noted on physical exam. Will sign-off. Cleared for employment with no issues Obesity 133868143 E66.8 Discussed importance of diet/exerc ise/lifest yle modificati ons. Health Concerns Section Related Observation LastModified by Organization Detai ls LastModified Time None Recorded Concern Status LastModified by Organization Details LastModified Time None Recorded Advance Directives Directive None Recorded Payers Insurance Date Sequence Insurance Name Policy Number Policy Ruiz Covered Member ID Ruiz Member ID Guarantor Name 10/24/2024 1 [facility] ON OR AFTER 10/29/20 (MEDICAID REPLACEMENT - HMO) [facility] [id number] [facility] 09/25/2024 1 [facility] PRIOR TO 10/29/2020 (MEDICAID REPLACEMENT - HMO) Francheska Newby [id number] [facility] Notes Date Note Type Note Provider Name and Address Organization Details Recorded Time 04/25/2019 text/html Throat PainRepor jennifer by PatientHPIFor location, patient reportsright. For quality, patient reportssharpandachin g. For duration, patient reportsstarted __ week(s) ago. For onset/timing, patient reportsabrupt. For associated symptoms, patient reportsno stress,no coughing with sputum,no choking,no throat tickle/itch,no globus sensation,no odynophagia,no dysphagia,no burping,no hoarseness,no neck/shoulder muscle tension,no weight loss,no loss of appetite,no fever,no lump in neck,no dyspnea,no daytime somnolence,no ear pain,no ear infection,no nasal congestion,no postnasal drip,no oral mucosal lesion, andno hemoptysis.ROS as noted in the HPI Pt has had R sided jaw pain since last night. Also reports toothache. Last dental apt was 4 months ago. No cavities that they are aware of. Has not taken anything for it. She states pain when opening and closing her mouth. REJI Tomas NP Attn: [address] [facility], [place], [address], [facility] 04/25/2019 17:22:56 03/03/2020 text/html here for a well visit. Kenney in HS. LMP 02/08/2020 x 5 days Jalyn Pemberton MD Attn: Accounting,[address] [facility], [place], [address], [facility] 03/03/2020 16:46:39 11/08/2022 text/html Chuy a 17 year old female with a PMH of idiopathic scoliosis presents to the clinic for back pain. She states that the back pain is a lot and is both sides of her lower back. She describes it as a dull constant pain. She rates it a 7/10 and states that it began a month ago. Patient says that it usually happens at work 5 hours into her shift. 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 She says it feels better when sitting down and bending over. She also says tylenol and ibuprophen helps. Patient was also concerned that the back pain is due to her big breasts and that back pain due to big breasts runs in her family. She is interested in discussing breast reduction in her next clinic visit. She denies any sharp shooting pain or radiating pain and denies any inciting trauma. Denice Wood MD Attn: [address]ing[address] [facility], [place], [address], [facility] 11/09/2022 20:58:43 12/07/2023 text/html ROS as noted in the HPI Francheska is a 18 y/o F w/ PMHx of scoliosis and elevated BMI who presents today to complete work physical form and a TB test. She does not have any concerns; pt of Dr. Vazquez. She has brought a physical form that is requesting information re: immunizations and TB skin testing.Explained to pt that she is up to date on all vaccines and TB test would require an RTC in 48 hrs to have the test read. Pt denies any fever, chills, night sweats, changes in vision, cough, dysphagia, CP, palpitations, SOB, CVA tenderness, Abd discomfort, n/v/d/c, changes in urination frequency/dysuria, fatigue. CRISTOBAL BOOGIE MD Attn: [address] [place], [address], [facility] 12/11/2023 09:27:41 OBGyn Episode No OBEpisode recorded.
[2025-03-25 23:20] LABS: Hematocrit 39.5 % (37.0-47.0); Hemoglobin 13.4 g/dL (12.0-15.0); Immature Granulocyte Percent A 0.3 % (0-0.5); Lymphocytes Absolute Auto 2.28 K/mm3 (0.9-3.2); Mean Corpuscular HGB Conc 33.9 g/dl (32-36); Mean Corpuscular Hemoglobin 29.0 pg (26-34); Mean Corpuscular Volume 85.5 fl (80-100); Nucleated Red Blood Cells Absolute Auto 0.000 K/mm3 (0.0-0.012); Nucleated Red Blood Cells Perc 0.0 % (0.0-0.2); Platelet Count Result 304 k/mm3 (150-375); Red Blood Count 4.62 M/mm3 (4.2-5.4); White Blood Count 9.8 K/mm3 (4.5-10.0)
[2025-03-25 23:38] LABS: Cannabinoid Screen Urine Negative (Negative)
[2025-03-25 23:40] LABS: INR 1.0; Prothrombin Time 13.3 Seconds (11.1-14.7)
[2025-03-25 23:41] LABS: Partial Thromboplastin Time 28.7 Seconds (22.3-36.8)
[2025-03-25 23:45] VITALS: BP 138/83; PULSE 85; RESP 20; O2SAT 100
[2025-03-25 23:47] VITALS: BP 114/75; PULSE 86; RESP 19; O2SAT 100
[2025-03-25 23:50] LABS: Alanine Aminotransferase 16 U/L (6-35); Albumin Level 4.8 g/dL (3.5-5.1); Alkaline Phosphatase 86 U/L (38-126); Anion Gap 10 mmol/L (4-12); Aspartate Amino Transferase 30 U/L (14-36); Bilirubin,Total 0.6 mg/dL (0.2-1.3); Blood Urea Nitrogen 9 mg/dL (7-17); Calcium 10.2 mg/dL (8.4-10.2); Carbon Dioxide 25 mmol/L (22-30); Chloride 101 mmol/L (98-107); Estimated CRCL calculation 109 ml/min; Estimated Glomerular Filt Rate > 60; Glucose 86 mg/dL (65-110); Magnesium 1.9 mg/dL (1.6-2.3); Potassium 4.6 mmol/L (3.4-5.0); Sodium 136 mmol/L (137-145); Total Protein 8.9 g/dL (6.3-8.2)
[2025-03-25 23:55] LABS: Add Urine Microscopic? YES; Appearance Urine Clear (Clear); Glucose Urine UA Negative (Negative); Leukocyte Esterase Ur 2+ LEU/UL (Negative); Need Manual Microscopic Reviewed; Nitrate Urine Negative (Negative); Non Pathogenic Casts 0-2; Specific Grav Ur 1.012 (1.001-1.035)
[2025-03-26 00:02] VITALS: BP 118/74; PULSE 85; RESP 20; O2SAT 100
[2025-03-26 00:17] VITALS: BP 113/78; PULSE 88; RESP 20; O2SAT 100
[2025-03-26 00:24] LABS: Thyroid Stimulating Hormone 1.810 uIU/mL (0.465-4.680)
[2025-03-26] MEDS: KETOROLAC 15 MG/ML VIAL (*BKC) IV PUSH (00:41)
== END 2025-03-26 00:45 | disposition home or self-care (01) ==
PROVIDERS: Emergency Provider Registered Nurse
DX: S13.4XXA Sprain of ligaments of cervical spine, initial encounter (principal); S06.0XAA Concussion with loss of consciousness status unknown, initial encounter; R41.82 Altered mental status, unspecified; V43.52XA Car driver injured in collision with other type car in traffic accident, initial encounter
CPT/HCPCS: 36415; 70450; 71045; 72125; 80053; 80307; 81001; 82077; 82948; 83605; 83735; 84100; 84443; 85025; 85610; 85730; 87086; 93005; 96361; 96374; 99284; J1885; J7030